=== PATIENT | female | born 1975 | race Caucasian/White ===

== ENCOUNTER 2021-01-29 07:15 | Outpatient (CLI) | payer OTHER | END 2021-01-29 07:16 | disposition home or self-care (01) | LOC: NM 07:15 | PROVIDERS: ATTEND Internal Medicine Gastroenterology | DX: K31.84 Gastroparesis (principal); R11.2 Nausea with vomiting, unspecified; R68.81 Early satiety; R63.4 Abnormal weight loss | CPT/HCPCS: 78264; A9541 ==